=== PATIENT | male | born 1955 | race Caucasian/White ===

== ENCOUNTER → 2019-07-25 | Outpatient (CLI) | payer OTHER ==
[~2019-07-25] MED LIST: Doxycycline Hy100 MG PO; VALACYCLOVIR1000 MG PO
== END | disposition home or self-care (01) ==
LOC: LAB SHORT 18:28 → LAB 18:28
DX: L08.9 Local infection of the skin and subcutaneous tissue, unspecified (principal); L57.0 Actinic keratosis; L40.0 Psoriasis vulgaris; L81.4 Other melanin hyperpigmentation
CPT/HCPCS: 87529; 87798

== ENCOUNTER 2021-10-16 12:26 | Day surgery (SDC) | payer OTHER ==
[~2021-10-16 12:26] MED LIST changes: +DHEA 2525 MG PO; +ERGO50000; +HUMIRA(CF)40 MG/0.1 SQ; +TADA10TA; +TAMS.4ER PO; +Vitamin B-Comp1 EACH PO; +Zinc 15 MG Loze15 MG PO
--- NOTE | 2021-10-16 13:31 | NUR ---
10/16/21 1331 Asha Carter PT WAS CANCELLED SHORTLY AFTER ARRIVING IN PREOP PT HAD BEEN TAKING ASPIRIN 325MG FOR LEG PAIN AND DID NOT STOP IT. INFO RELAYED TO MD CHAVARRIA AND HE CANCELLED THE PROCEDURE THE PT SHOULD HAVE STOPPED THE ASPIRIN 5 DAYS BEFORE AN UPPER ENDOSCOPY.
== END 2021-10-16 12:35 | disposition home or self-care (01) ==
LOC: ORSCSDS 12:26
DX: K21.9 Gastro-esophageal reflux disease without esophagitis (principal); Z53.9 Procedure and treatment not carried out, unspecified reason
CPT/HCPCS: J0330; J0461; J2405; J2704; J7120

== ENCOUNTER 2024-10-12 20:39 | Observation (INO) | payer OTHER ==
[~2024-10-12] VITALS: Ht 172.7 cm; Wt 92.7 kg
[~2024-10-12 20:39] MED LIST changes: +Keflex500 MG PO; -TADA10TA; +TADA10TA PO
[2024-10-12] MEDS ORDERED: Albuterol 2.5 MG/3 ML VIAL INH SCH (20:45)
[2024-10-12] MEDS ORDERED: Digoxin 0.25 MG/ML 2ML Amp IV ONE (20:50)
[2024-10-12] MEDS ORDERED: Diltiazem HCl 5 MG / ML 5ML Vial IV ONE (20:50)
[2024-10-12 21:19] LABS: BASOPHILS ABSOLUTE AUTO 0.06 K/mm3 (0.00-0.23); BASOPHILS PERCENT AUTO 1 % (0-2); EOSINOPHILS ABSOLUTE AUTO 0.02 K/mm3 (0.00-0.68); EOSINOPHILS PERCENT AUTO 0 % (0-6); Hemoglobin 17.5 g/dL (13.5-17.5); IMMATURE GRAN ABSOLUTE AUTO 0.03 K/mm3 (0.00-0.10); IMMATURE GRAN PERCENT AUTO 0 % (0-1); LYMPHOCYTES ABSOLUTE AUTO 1.57 K/mm3 (0.84-5.20); LYMPHOCYTES PERCENT AUTO 17 % (21-46); MONOCYTES ABSOLUTE AUTO 0.85 K/mm3 (0.16-1.47); MONOCYTES PERCENT AUTO 9 % (4-13); Mean Corpuscular HGB 33.3 pg (26.0-34.0); Mean Corpuscular HGB Conc 33.7 g/dL (31.5-36.5); Mean Corpuscular Volume 99 fL (80-100); Mean Platelet Volume 10.6 fL (9.1-12.4); NEUTROPHILS ABSOLUTE AUTO 6.52 K/mm3 (1.96-9.15); NEUTROPHILS PERCENT AUTO 72 % (41-73); Platelet Count 190 K/mm3 (150-400); RDW Coefficient Variation 14.1 % (11.7-14.2); RDW Standard Deviation 51.2 fL (35.1-46.3); Red Blood Cell Count 5.26 M/mm3 (4.30-5.90); White Blood Cell Count 9.05 K/mm3 (4.00-11.30)
[2024-10-12] MEDS ORDERED: OMEP20ER PO (21:24)
[2024-10-12] MEDS ORDERED: LOSA25 PO (21:24)
[2024-10-12] MEDS ORDERED: TESTOSTERONE200 MG IL (21:25)
[2024-10-12] MEDS ORDERED: METO25ER PO (21:25)
[2024-10-12] MEDS ORDERED: ELIQUIS5 M3 PO (21:25)
[2024-10-12] MEDS ORDERED: DEPO-TESTO200 MG/18 IM (21:26)
[2024-10-12 21:38] LABS: Albumin, Blood 3.4 g/dL (3.4-5.0); Albumin/Globulin Ratio 0.9 (0.8-1.8); Bilirubin, Total 0.9 mg/dL (0.1-1.0); Bun/Creatinine Ratio 20.1 (12.0-20.0); Calcium, Blood 9.3 mg/dL (8.5-10.1); Creatinine, Blood 1.39 mg/dL (0.60-1.20); Globulin, Blood 3.9 g/dL (2.2-4.0); Potassium, Blood 4.8 mmol/L (3.5-5.5); Total Protein, Blood 7.3 g/dL (6.4-8.2)
[2024-10-12] MEDS ORDERED: Azithromycin 500 MG in NS 250 ML IV ONE (22:25)
[2024-10-12] MEDS ORDERED: CefTRIAXone Sodium 1,000 MG in NS 100 ML IV ONE (22:25)
[2024-10-12 22:40] LABS: Influenza B, PCR NEGATIVE (NEGATIVE); Resp Syncytial Virus, PCR NEGATIVE (NEGATIVE); SARS-Cov-2 (COVID-19) PCR, MMC NEGATIVE (NEGATIVE)
[2024-10-12 23:01] LABS: Influenza A, PCR POSITIVE (NEGATIVE)
[2024-10-12] MEDS ORDERED: FLU VACC TS2024-25(6MOS UP)/PF 45 MCG/0.5 ML SYRINGE IM ONE (23:55)
[2024-10-13] VITALS (8 sets, daily range): BP systolic 129–153; BP diastolic 94–116
[2024-10-13] MEDS ORDERED: Oseltamivir Phosphate 75 MG Cap PO SCH (00:07)
[2024-10-13] MEDS ORDERED: NS 500 ML IV ONE (01:00)
[2024-10-13] MEDS ORDERED: Albuterol 2.5 MG/3 ML VIAL INH PRN (01:35)
--- NOTE | 2024-10-13 02:08 | NUR ---
THIS RN ASSUMED CARE OF PT AT 0031. PT IS ALERT AND ORIENTED X4, FOLLOWING COMMANDS AND ABLE TO WALK TO BED ON HIS OWN. PT SOUNDS COURSE/WHEEZY/DIMINSIHED, PT DID HAVE AN EPISODE OF SHORTNESS OF BREATH, BREATHING TREATMENTS WERE SCHEDULED AND HELPED PT. PT IS IN A-FIB RATE CONTROLLED 80-100s, DILT HAS NOT BEEN STARTED DUE TO HEART RATE BEING LESS THAN 110. PT DENIES CHEST PAIN AND BLOOD PRESSURE STABLE AT 133/107. PT SIGNIFICANT OTHER WAS PRESENT AT BEDSIDE. NO OTHER INTERVENTIONS AT THIS TIME, WAS NOTIFIED OF SHORTNESS OF BREATH AND PUT IN NEW ORDERS. PLAN OF CARE CONTINUED.
[2024-10-13 04:06] LABS: BASOPHILS ABSOLUTE AUTO 0.04 K/mm3 (0.00-0.23); BASOPHILS PERCENT AUTO 0 % (0-2); EOSINOPHILS ABSOLUTE AUTO 0.01 K/mm3 (0.00-0.68); EOSINOPHILS PERCENT AUTO 0 % (0-6); Hematocrit 48.8 % (37.0-53.0); Hemoglobin 16.6 g/dL (13.5-17.5); IMMATURE GRAN ABSOLUTE AUTO 0.05 K/mm3 (0.00-0.10); IMMATURE GRAN PERCENT AUTO 1 % (0-1); LYMPHOCYTES ABSOLUTE AUTO 0.92 K/mm3 (0.84-5.20); LYMPHOCYTES PERCENT AUTO 9 % (21-46); MONOCYTES ABSOLUTE AUTO 0.98 K/mm3 (0.16-1.47); MONOCYTES PERCENT AUTO 9 % (4-13); Mean Corpuscular HGB 33.7 pg (26.0-34.0); Mean Corpuscular Volume 99 fL (80-100); Mean Platelet Volume 10.7 fL (9.1-12.4); NEUTROPHILS ABSOLUTE AUTO 8.58 K/mm3 (1.96-9.15); NEUTROPHILS PERCENT AUTO 81 % (41-73); Platelet Count 171 K/mm3 (150-400); RDW Coefficient Variation 14.1 % (11.7-14.2); Red Blood Cell Count 4.92 M/mm3 (4.30-5.90); White Blood Cell Count 10.58 K/mm3 (4.00-11.30)
[2024-10-13 04:21] LABS: Albumin, Blood 3.1 g/dL (3.4-5.0); Albumin/Globulin Ratio 0.8 (0.8-1.8); Bun/Creatinine Ratio 18.7 (12.0-20.0); Calcium, Blood 8.8 mg/dL (8.5-10.1); Creatinine, Blood 1.34 mg/dL (0.60-1.20); Globulin, Blood 3.8 g/dL (2.2-4.0); Potassium, Blood 4.5 mmol/L (3.5-5.5); Total Protein, Blood 6.9 g/dL (6.4-8.2)
--- NOTE | 2024-10-13 05:48 | NUR ---
PT SUMMARY PT IS ALERT AND ORIENTED X4, SLEEPING IN BED. PT WILL HAVE COUGHING SPASMS. PT IS COUGHING UP MUCUS. BREATHING TREATMENTS AND HUMIDIFIED OXYGEN ARE HELPING THE PT AND PT STATES TEHY FEEL BETTER AFTER BREATHING TREATMENT. NO NEW EVENTS TO REPORT OVERNIGHT. PLAN OF CARE CONTINUED.
[2024-10-13] MEDS ORDERED: Apixaban 5 MG Tab PO SCH (09:00)
[2024-10-13] MEDS ORDERED: Oseltamvir Phosphate 30 MG Cap PO SCH (09:00)
[2024-10-13] MEDS ORDERED: Losartan Potassium 25 MG Tab PO SCH (09:00)
[2024-10-13] MEDS ORDERED: Metoprolol Succinate 25 MG TABCR PO SCH ×2 (09:00→21:00)
[2024-10-13] MEDS ORDERED: Acetaminophen 325 MG TABLET PO PRN (09:50)
[2024-10-13] MEDS ORDERED: Benzonatate 100 MG Cap PO PRN (13:20)
--- NOTE | 2024-10-13 18:12 | NUR ---
SHIFT SUMMARY PT A&OX4. THIS EVENING REPORTS FEELING 'WARM'. TEMP 99.1. SP02>90% ON 2L AIR W/ HUMIDIFIER FOR MOISTURE. PRODUCTIVE COUGH. EDUCATED PT ON SPLINTING WITH PILLOW. BREATHING TX MULTIPLE TIMES THIS SHIFT. TELEMTRY SHOWS AFIB, HR 90'S-140'S. AVG 110'S. HR INCREASING THIS EVENING, MD WALKER W/ JUICE TO GIVE NIGHT TIME METOPROLOL EARLY, SEE EMAR. USED URINAL AT BEDSIDE. C/O OF HEADACHE. MEDICATED W/ TYLENOL PER EMAR X2. IN ROOM MOST OF SHIFT. CALL LIGHT IN REACH.
[2024-10-13] MEDS ORDERED: GuaiFENesin 600 MG TabCR PO SCH (21:00)
[2024-10-14 04:05] VITALS: BP 169/114
[2024-10-14 04:09] LABS: Hematocrit 49.5 % (37.0-53.0); Hemoglobin 17.2 g/dL (13.5-17.5); Mean Corpuscular HGB 34.5 pg (26.0-34.0); Mean Corpuscular HGB Conc 34.7 g/dL (31.5-36.5); Mean Corpuscular Volume 99 fL (80-100); Mean Platelet Volume 10.9 fL (9.1-12.4); Platelet Count 153 K/mm3 (150-400); RDW Coefficient Variation 14.3 % (11.7-14.2); RDW Standard Deviation 51.4 fL (35.1-46.3); Red Blood Cell Count 4.99 M/mm3 (4.30-5.90); White Blood Cell Count 12.28 K/mm3 (4.00-11.30)
[2024-10-14 04:50] LABS: Albumin, Blood 3.1 g/dL (3.4-5.0); Anion Gap 14 mmol/L (3-11); Blood Urea Nitrogen 18 mg/dL (8-24); CO2, Blood 21 mmol/L (21-32); Calcium, Blood 8.7 mg/dL (8.5-10.1); Chloride, Blood 99 mmol/L (98-108); Creatinine, Blood 1.06 mg/dL (0.60-1.20); Glomerular Filtration Rate 76 (60-); Glucose, Blood 126 mg/dL (70-99); Phosphorus, Blood 2.7 mg/dL (2.5-4.9); Potassium, Blood 4.4 mmol/L (3.5-5.5); Sodium, Blood 130 mmol/L (136-145)
--- NOTE | 2024-10-14 05:52 | NUR ---
SHIFT SUMMARY PATIENT ALERT AND ORIENTED X4. MEDICATED PER EMAR FOR RIB PAIN AND HEADACHE DUE TO COUGHING. PATIENT IS ON ROOM AIR WITH SPO2 >90%, IS NOTED TO BE DYSPNIC UPON EXERTION. VITAL SIGNS STABLE, AFIB ON TELE 100-120'S. WILL CONTINUE TO MONITOR. CALL LIGHT WITHIN REACH.
[2024-10-14 07:45] VITALS: BP 141/102
[2024-10-14] MEDS ORDERED: Empagliflozin 10 MG TAB PO SCH (09:00)
[2024-10-14] MEDS ORDERED: Metoprolol Succinate 25 MG TABCR PO SCH (09:00)
[2024-10-14] MEDS ORDERED: Sacubitril/Valsartan 24 MG-26 MG Tab PO SCH (09:00)
[2024-10-14] MEDS ORDERED: Oseltamvir Phosphate 30 MG Cap PO ONE (09:40)
[2024-10-14 12:34] VITALS: BP 126/96
[2024-10-14] MEDS ORDERED: ALBU90OI INH (13:45)
[2024-10-14] MEDS ORDERED: BENZ100A PO (13:45)
[2024-10-14] MEDS ORDERED: GUAI600T33 PO (13:46)
[2024-10-14] MEDS ORDERED: JARDIANCE10 MG PO (13:46)
[2024-10-14] MEDS ORDERED: OSEL75CA PO (13:46)
[2024-10-14] MEDS ORDERED: ENTRESTO 24 MG1 EACH PO (13:47)
--- NOTE | 2024-10-14 14:50 | NUR ---
DISCHARGE SUMMARY PT A&OX4. VSS. SP02>90% ON RA. CHEST XRAY DONE THIS AM. PT STATES READY TO GO HOME. IVS REMOVED. TELEMETRY REMOVED. DISCHARGE PAPERWORK AND MEDICATION REVIEWED WITH PT AND PARTNER. PT VERBALIZED UNDERSTANDING ABOUT RESTING AT HOME AND TAKING IT EASY. MEDICATIONS FAXED TO [facility] PER PT REQUEST. PT DRESSED SELF. WHEELED TO PRIVATE VEHICLE WITH PERSONAL BELONGINGS AND PARTNER.
[2024-10-14] MEDS ORDERED: Oseltamivir Phosphate 75 MG Cap PO SCH (21:00)
== END 2024-10-14 14:30 | disposition home or self-care (01) ==
LOC: ER 20:39 → PCU 20:40
PROVIDERS: Emergency Medicine; Family Medicine; Internal Medicine; ADMIT Internal Medicine
DX: A41.9 Sepsis, unspecified organism (principal); J11.1 Influenza due to unidentified influenza virus with other respiratory manifestations; I48.91 Unspecified atrial fibrillation; N17.9 Acute kidney failure, unspecified; I50.20 Unspecified systolic (congestive) heart failure; Z88.6 Allergy status to analgesic agent; Z79.01 Long term (current) use of anticoagulants; Z79.899 Other long term (current) drug therapy
CPT/HCPCS: 0241U; 36415; 71045; 71046; 80053; 80069; 83605; 83880; 84145; 84443; 84484; 85025; 85027; 87040; 93005; 93010; 94640; 94644; 94664; 94760; 94762; 96361; 96365; 96366; 96367; 96375; 99285-25; A9270; G0378; J0456; J0696; J1160; J7040; J7050

== ENCOUNTER 2024-11-21 06:06 | Day surgery (SDC) | payer OTHER ==
[~2024-11-21 06:06] MED LIST changes: +ALBU90OI INH; +BENZ100A PO; +DEPO-TESTO200 MG/18 IM; +ELIQUIS5 M3 PO; +ENTRESTO 24 MG1 EACH PO; +GUAI600T33 PO; +JARDIANCE10 MG PO; +LOSA25 PO; +METO25ER PO; +OMEP20ER PO; +OSEL75CA PO; +TESTOSTERONE200 MG IL
[2024-11-21] MEDS ORDERED: SOAANZ20 M2 PO (06:37)
[2024-11-21] MEDS ORDERED: NS 1,000 ML IV ONE (06:47)
[2024-11-21 06:52] VITALS: BP 129/94
[2024-11-21 07:02] VITALS: BP 108/87
--- NOTE | 2024-11-21 07:05 | NUR ---
ASSUMED CARE FROM ANESTHESIA. PT AWAKE AND VERBALIZING WELL. SR 70BPM POST CARDIOVERSION.
[2024-11-21 07:06] VITALS: BP 119/80
[2024-11-21 07:22] VITALS: BP 114/86
[2024-11-21 07:24] VITALS: BP 114/83
[2024-11-21 07:30] VITALS: BP 114/83
--- NOTE | 2024-11-21 07:45 | NUR ---
PT AND GIRLFRIEND VERBALIZED UNDERSTANDING OF WRITTEN AND VERBAL D/C INST. IV REMOVED. SR 75BPM ON D/C.
== END 2024-11-21 10:00 | disposition home or self-care (01) ==
LOC: MHTC 06:06
DX: I48.19 Other persistent atrial fibrillation (principal); I10 Essential (primary) hypertension; Z79.01 Long term (current) use of anticoagulants; Z88.5 Allergy status to narcotic agent
CPT/HCPCS: 92960; 93005; 93010; J7030

== ENCOUNTER 2024-11-24 10:17 | Emergency (ER) | payer OTHER ==
[~2024-11-24] VITALS: Ht 172.7 cm; Wt 86.2 kg
[~2024-11-24 10:17] MED LIST changes: +SOAANZ20 M2 PO
[2024-11-24 10:52] LABS: BASOPHILS ABSOLUTE AUTO 0.06 K/mm3 (0.00-0.23); BASOPHILS PERCENT AUTO 1 % (0-2); EOSINOPHILS ABSOLUTE AUTO 0.03 K/mm3 (0.00-0.68); EOSINOPHILS PERCENT AUTO 0 % (0-6); Hemoglobin 19.8 g/dL (13.5-17.5); IMMATURE GRAN ABSOLUTE AUTO 0.04 K/mm3 (0.00-0.10); IMMATURE GRAN PERCENT AUTO 0 % (0-1); LYMPHOCYTES ABSOLUTE AUTO 1.26 K/mm3 (0.84-5.20); LYMPHOCYTES PERCENT AUTO 13 % (21-46); MONOCYTES ABSOLUTE AUTO 0.95 K/mm3 (0.16-1.47); MONOCYTES PERCENT AUTO 10 % (4-13); Mean Corpuscular HGB 33.8 pg (26.0-34.0); Mean Corpuscular HGB Conc 34.7 g/dL (31.5-36.5); Mean Corpuscular Volume 97 fL (80-100); NEUTROPHILS ABSOLUTE AUTO 7.44 K/mm3 (1.96-9.15); NEUTROPHILS PERCENT AUTO 76 % (41-73); Platelet Count 191 K/mm3 (150-400); RDW Coefficient Variation 15.9 % (11.7-14.2); RDW Standard Deviation 56.5 fL (35.1-46.3); Red Blood Cell Count 5.86 M/mm3 (4.30-5.90); White Blood Cell Count 9.78 K/mm3 (4.00-11.30)
[2024-11-24 10:58] LABS: Hematocrit 57.1 % (37.0-53.0)
[2024-11-24 11:15] LABS: Albumin, Blood 3.5 g/dL (3.4-5.0); Albumin/Globulin Ratio 0.8 (0.8-1.8); Bilirubin, Total 1.6 mg/dL (0.1-1.0); Bun/Creatinine Ratio 18.8 (12.0-20.0); Calcium, Blood 9.1 mg/dL (8.5-10.1); Creatinine, Blood 1.6 mg/dL (0.60-1.20); Globulin, Blood 4.2 g/dL (2.2-4.0); Potassium, Blood 4.5 mmol/L (3.5-5.5); Total Protein, Blood 7.7 g/dL (6.4-8.2)
[2024-11-24] MEDS ORDERED: Etomidate 2MG / ML 10ML Vial IV SCH (11:30)
[2024-11-24] MEDS ORDERED: NS 1,000 ML IV SCH ×2 (11:30→13:05)
[2024-11-24 13:45] VITALS: BP 105/83
== END 2024-11-24 13:56 | disposition home or self-care (01) ==
LOC: ER 10:17
PROVIDERS: Emergency Medicine
DX: I48.91 Unspecified atrial fibrillation (principal); N17.9 Acute kidney failure, unspecified; Z79.899 Other long term (current) drug therapy; Z88.6 Allergy status to analgesic agent
CPT/HCPCS: 71045; 80053; 83735; 84484; 85025; 92960; 93005; 93010; 99285-25; J7030

== ENCOUNTER 2025-06-08 11:40 | Day surgery (SDC) | payer OTHER, MEDICARE ==
[~2025-06-08] VITALS: Ht 172.7 cm; Wt 87.0 kg
[~2025-06-08 11:40] MED LIST changes: +Lidocaine HCl 2% 10 ML SDA ONE; +NS 500 ML IV ONE
[2025-06-08] MEDS ORDERED: CeFAZolin Sodium 2,000 MG VIAL ONE (11:43)
[2025-06-08] MEDS ORDERED: Amiodarone HCl200 MG PO (12:06)
[2025-06-08] MEDS ORDERED: VALACYCLOVIR1000 MG (12:07)
[2025-06-08] MEDS ORDERED: NS 500 ML IV ONE (12:18)
[2025-06-08] MEDS ORDERED: Lidocaine HCl 2% 10 ML SDA INJ ONE (13:52)
[2025-06-08] MEDS ORDERED: FentaNYL Citrate 50 MCG/ML 2 ML Injection ONE (14:32)
[2025-06-08 14:41] VITALS: BP 121/81
[2025-06-08] MEDS ORDERED: HYDROcodone 5-APAP 325 TAB ONE (14:45)
== END 2025-06-08 15:33 | disposition home or self-care (01) ==
LOC: ORSCSDS 11:40
PROVIDERS: Podiatrist Foot & Ankle Surgery
PROC: 0Y6R0Z1 Detachment at Right 2nd Toe, High, Open Approach (ICD-10-PCS; principal; 2025-06-08 13:00)
DX: L97.519 Non-pressure chronic ulcer of other part of right foot with unspecified severity (principal); M89.8X7 Other specified disorders of bone, ankle and foot; I12.9 Hypertensive chronic kidney disease with stage 1 through stage 4 chronic kidney disease, or unspecified chronic kidney disease; N18.9 Chronic kidney disease, unspecified; I48.91 Unspecified atrial fibrillation; Z79.01 Long term (current) use of anticoagulants; K21.9 Gastro-esophageal reflux disease without esophagitis
CPT/HCPCS: 88305; A6253; A9270; J0690; J2003; J2704; J3010; J7040